=== PATIENT | male | born 1975 | race Asian ===

== ENCOUNTER 2020-12-03 09:28 | Emergency (ER) | payer BC ==
[~2020-12-03] VITALS: Ht 165.1 cm; Wt 74.8 kg
--- NOTE | 2020-12-03 10:00 | NUR ---
Pt triaged and placed in waiting room
[2020-12-03 10:07] VITALS: BP_SYST 124
--- NOTE | 2020-12-03 11:00 | NUR ---
Patient to ER bed hallway to gown for evaluation. Side rails up.
--- NOTE | 2020-12-03 11:05 | NUR ---
Pt walked in to ER with c/o right arm cellulitis x3 days, reports a bee sting on 11/30/20, seen in urgent care, given IM rocephin and PO Bactrim. No improvement, was instructed to come to ER. V/S stable, no acute distress, no fevers noted.
--- NOTE | 2020-12-03 11:30 | NUR ---
ER Dr. Rosado at bedside examining patient.
[2020-12-03] MEDS ORDERED: CEPH250C PO (11:48)
[2020-12-03] MEDS ORDERED: NAPR-688 PO (11:48)
[2020-12-03] MEDS ORDERED: DIPH25CA83 PO (11:48)
--- NOTE | 2020-12-03 11:55 | NUR ---
Patient given written and verbal discharge instructions and verbalizes understanding. ER MD discussed with patient the results and treatment provided. Patient in stable condition. ID arm band removed. Rx of benadryl, naproxyn and keflex given. Patient educated on pain management and to follow up with PMD. Pain Scale 0. Opportunity for questions provided and answered. Medication side effect fact sheet provided.
[2020-12-03] MEDS ORDERED: DIPHENHYDRAMINE HCL 12.5 MG/5 ML UDC PO ONE (12:00)
[2020-12-03 12:19] VITALS: BP_SYST 124
== END 2020-12-03 11:55 | disposition home or self-care (01) ==
LOC: SED 09:28
DX: L03.113 Cellulitis of right upper limb (principal); J45.909 Unspecified asthma, uncomplicated; Z79.899 Other long term (current) drug therapy
CPT/HCPCS: 99283